=== PATIENT | male | born 1935 | race Caucasian/White ===

== ENCOUNTER → 2018-01-25 | Outpatient (CLI) | payer MEDICARE ==
--- NOTE | 2018-02-05 17:33 | CON ---
[address] [address] CONSULTATION Name: TAYLORDESTINEY Carlene Room: [facility].#: [id number] Admission: 01/25/18 Attend Phys: Saul Doyle MD Discharge: Date of : 31 Report #: [id number] THIS REPORT FOR: //name// CC: Saul Singh MD DATE OF SERVICE: 01/25/2018 [facility] REFERRING PHYSICIANS: Include Dr. Seferino Singh and Dr. Kenyetta Tierney. PRIMARY SITE AND HISTOPATHOLOGY: The patient has a basal cell carcinoma involving the forehead, that area measures about 3.5 cm x 2 cm. If someone would use the 8th edition staging for cutaneous squamous cells of the head and neck, this would be a stage II, T2N0M0 skin cancer, though now the 8th edition of staging manual does not have a staging system for basal cell cancers. HISTORY OF PRESENT ILLNESS: The patient is an 82-year-old man who indicated that he had a skin cancer resected from the forehead about 40 years ago at [facility]. It sounds like that was initially basal cell cancer, and he had a graft placed in that area. 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 Singh and Dr. Singh performed a biopsy of the skin on the right side of that graft and left side of that graft and the pathology revealed a basal cell carcinoma, infiltrative subtype on the left and nodular infiltrative subtype on the right. Both side biopsy margins were involved with basal cell cancer and the patient was referred for consideration for radiation therapy for his basal cell carcinoma of the forehead. PAST MEDICAL HISTORY AND PAST SURGICAL HISTORY: He has hypertension, hearing loss, diabetes, history of asthma. 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 MEDICATIONS: Metformin, Flovent, Ventolin, Prolia, pravastatin, lisinopril/hydrochlorothiazide, niacinamide, Cialis, clopidogrel, and vitamin supplements. ALLERGIES: He has no known drug allergies. FAMILY HISTORY: Mother had a brain tumor and father had prostate cancer. SOCIAL HISTORY: The patient is retired. He is . He has 3 sons. Ethanol: he drinks about one alcohol-containing drink per week. Cigarettes: he smoked 2 packs a day and he quit smoking in [address] [address] CONSULTATION Name: DESTINEY TAYLOR Carlene Room: [facility]#: [id number] Admission: 01/25/18 Attend Phys: Saul Doyle MD Discharge: Date of : 31 Report #: [id number] REVIEW OF SYSTEMS: GENERAL: The patient denied having fevers or chills. SKIN: The patient does have color changes in the area of his basal cell skin cancer on the forehead, which is a hypopigmented area. LYMPH NODES: He denied having any enlarged lymph nodes in the neck. ENDOCRINE: The patient denied having any hot or cold intolerance. HEMATOLOGY/IMMUNOLOGY: The patient denied having any heat intolerance. MUSCULOSKELETAL: He does have some arthritis and does use a walker. HEAD AND NECK: He denied having any migraine headaches. RESPIRATORY: He denied having any shortness of breath. CARDIOVASCULAR: The patient denied having any palpitations. GASTROINTESTINAL: He denied having any nausea. NEUROLOGIC: The patient does have balance issues from his arthritis, so he uses a walker. PHYSICAL EXAMINATION: VITAL SIGNS: The patient's height is 5 feet 7 inches, weight 131.6 pounds, blood pressure 132/76, pulse 94, and respirations 18. GENERAL/PSYCHIATRIC: The patient was alert, oriented and in no acute distress. LYMPH NODES: He had no palpable cervical or supraclavicular lymphadenopathy. EYES: Pupils were equal, round, reactive to light and accommodation. Extraocular movements were intact. HEAD, EARS, NOSE AND THROAT: Mouth had no visible lesions and he did have a hypopigmented lesion on his forehead that measured approximately 3 cm x 2.5 cm and there were some areas that were slightly raised. HEART: Had a regular rate and rhythm without murmur. LUNGS: were clear to auscultation. ABDOMEN: Not tender. Spleen was not palpable. Liver was at the costal margin. EXTREMITIES: Had no clubbing, cyanosis or edema. ASSESSMENT AND PLAN: The patient has a basal cell carcinoma involving the forehead. He was told that his options are further resection of this area versus radiation therapy. The efficacy of radiation therapy can be found in the article entitled "Radiotherapy for epithelial skin cancer" with one of the authors being Dr. Enamorado. That article was published in 2000 in the International Journal of Radiation Oncology biology and physics. With radiation therapy, the overall local tumor control rate for skin cancers was 89%. The control rate for basal cell carcinoma was 92%. So, the risks, benefits, logistics of radiation therapy were described to the patient in detail and the patient gave his witnessed informed consent to proceed with radiation therapy. Thank you very much for this consult. <ELECTRONICALLY SIGNED> By: Saul Doyle MD 02/05/18 [id number] MD marvin Carvalho
== END ==
LOC: M.RTH 02:41
DX: C44.91 Basal cell carcinoma of skin, unspecified (principal)